=== PATIENT | male | born 1985 | race Caucasian/White ===

== ENCOUNTER 2021-07-09 07:18 | Outpatient (CLI) | payer OTHER, SELFPAY ==
[2021-07-09 09:02] LABS: Basophils Absolute Auto 0.1 K/mm3 (0.0-0.1); Basophils Percent Auto 1.1 % (0.2-1.2); Eosinophils Absolute Auto 0.5 K/mm3 (0-0.3); Eosinophils Percent Auto 7.9 % (0-4.4); Hematocrit 46.6 % (42.0-52.0); Hemoglobin 15.6 g/dL (14.0-18.0); Immature Granulocyte Absolute 0.03 K/mm3 (0.00-0.031); Immature Granulocyte Percent A 0.5 % (0-0.5); Lymphocytes Absolute Auto 1.49 K/mm3 (0.9-3.2); Mean Corpuscular HGB Conc 33.5 g/dl (32-36); Mean Corpuscular Hemoglobin 30.4 pg (26-34); Mean Corpuscular Volume 90.7 fl (80-100); Mean Platelet Volume 11.4 fl (7.4-10.4); Monocytes Absolute Auto 0.9 K/mm3 (0.1-0.6); Monocytes Percent Auto 14.5 % (2.6-8.5); Neutrophils Absolute Auto 3.2 K/mm3 (1.3-6.7); Platelet Count Result 232 k/mm3 (150-375); Red Blood Count 5.14 M/mm3 (4.6-6.20); Red Cell Distribution Width 12.9 % (11.5-14.5); White Blood Count 6.2 K/mm3 (4.5-10.0)
[2021-07-09 09:14] LABS: Alanine Aminotransferase 38 U/L (4-50); Albumin Level 4.5 g/dL (3.5-5.1); Alkaline Phosphatase 81 U/L (38-126); Anion Gap 7 mmol/L (8-16); Aspartate Amino Transferase 32 U/L (17-59); Bilirubin,Total 0.9 mg/dL (0.2-1.3); Blood Urea Nitrogen 19 mg/dL (9-20); Calcium 8.8 mg/dL (8.4-10.2); Carbon Dioxide 27 mmol/L (22-30); Chloride 107 mmol/L (98-107); Cholesterol 180 mg/dL (0-200); Estimated Glomerular Filt Rate > 60; Glucose 102 mg/dL (65-110); HDL Direct 45 mg/dL; Potassium 4.1 mmol/L (3.4-5.0); Sodium 141 mmol/L (137-145); Triglycerides 100 mg/dL (<150)
[2021-07-09 09:26] LABS: LDL Cholesterol Direct 97 mg/dL
== END 2021-07-09 07:19 | disposition home or self-care (01) ==
PROVIDERS: PCP Family Medicine; Visit Provider Nurse Practitioner Family
DX: R10.9 Unspecified abdominal pain (principal); Z13.29 Encounter for screening for other suspected endocrine disorder; R40.0 Somnolence; Z13.220 Encounter for screening for lipoid disorders
CPT/HCPCS: 36415; 80053; 80061; 84443; 85025

== ENCOUNTER 2021-07-19 10:59 | Outpatient (CLI) | payer OTHER, SELFPAY ==
--- NOTE | ~2021-07-19 | XR_ITS ---
EXAMINATION:XR_[id number]_CR DATE: 07/19/2021 11:22 INDICATION: Neck pain TECHNIQUE: AP, lateral, and odontoid views of the cervical spine are provided. COMPARISON: None FINDINGS: Alignment is normal. The odontoid is intact. No fracture is identified. Vertebral body heig hts and disk spaces are normal. Prevertebral soft tissues are normal. IMPRESSION: 1. Unremarkable cervical spine. Reviewed, dictated and finalized at location A.
== END 2021-07-19 11:00 | disposition home or self-care (01) ==
LOC: ANHIMG 11:04
PROVIDERS: PCP Family Medicine; Visit Provider Nurse Practitioner Family
DX: M54.2 Cervicalgia (principal)
CPT/HCPCS: 72040

== ENCOUNTER 2022-04-17 02:27 | Emergency (ER) | payer OTHER, SELFPAY ==
[2022-04-17] VITALS (20 sets, daily range): BP systolic 113–132; BP diastolic 70–94; PULSE 72–95; RESP 12–32; O2SAT 94–100
--- NOTE | ~2022-04-17 | XR_ITS ---
XR chest 2V DATE: 04/17/2022 03:05 INDICATION: Midsternal chest pain TECHNIQUE: PA and lateral views COMPARISON: None FINDINGS: Normal heart size. No hilar or mediastinal enlargement. No pulmonary infiltrate or consolid ation, pleural effusion or pulmonary vascular congestion or pneumothorax. IMPRESSION: No active cardiac pulmonary disease Reviewed, dictated and finalized at location A.
--- NOTE | 2022-04-17 02:32 | ECG_ITS ---
Measurements Intervals [place] Rate: 85 P: 27 CO: 148 QRS: 27 QRSD: 102 T: -7 QT: 345 QTc: 412 Interpretive Statements SINUS RHYTHM INCOMPLETE RIGHT BUNDLE BRANCH BLOCK MINIMAL Q WAVES- DIFFUSE LEADS BORDERLINE ST-T WAVE ABNORMALITY- ANT/INF LEADS BASELINE ARTIFACT- I, II, AVR BORDERLINE ECG Electronically Signed On 04-17-2022 9:41:20 CDT by Randy Woods D.O.
[2022-04-17 02:44] LABS: Basophils Absolute Auto 0.1 K/mm3 (0.0-0.1); Basophils Percent Auto 0.9 % (0.2-1.2); Eosinophils Absolute Auto 0.7 K/mm3 (0-0.3); Eosinophils Percent Auto 8.7 % (0-4.4); Hematocrit 46.4 % (42.0-52.0); Hemoglobin 15.7 g/dL (14.0-18.0); Immature Granulocyte Absolute 0.02 K/mm3 (0.00-0.031); Immature Granulocyte Percent A 0.2 % (0-0.5); Lymphocytes Absolute Auto 2.56 K/mm3 (0.9-3.2); Lymphocytes Percent Auto 31.4 % (18.3-44.2); Mean Corpuscular HGB Conc 33.8 g/dl (32-36); Mean Corpuscular Hemoglobin 30.2 pg (26-34); Mean Corpuscular Volume 89.2 fl (80-100); Monocytes Absolute Auto 1.2 K/mm3 (0.1-0.6); Monocytes Percent Auto 14.2 % (2.6-8.5); Neutrophils Absolute Auto 3.6 K/mm3 (1.3-6.7); Neutrophils Percent Auto 44.6 % (45.5-73.1); Platelet Count Result 247 k/mm3 (150-375); Red Cell Distribution Width 12.7 % (11.5-14.5); White Blood Count 8.2 K/mm3 (4.5-10.0)
[2022-04-17] MEDS: ASPIRIN 81 MG CHEWABLE TABLET 324 MG PO (02:47)
[2022-04-17 02:54] LABS: Alanine Aminotransferase 40 U/L (6-50); Albumin Level 4.7 g/dL (3.5-5.1); Alkaline Phosphatase 97 U/L (38-126); Anion Gap 8 mmol/L (8-16); Aspartate Amino Transferase 31 U/L (17-59); Bilirubin,Total 0.4 mg/dL (0.2-1.3); Blood Urea Nitrogen 14 mg/dL (9-20); Calcium 8.7 mg/dL (8.4-10.2); Carbon Dioxide 26 mmol/L (22-30); Chloride 107 mmol/L (98-107); Estimated CRCL calculation 100 ml/min; Estimated Glomerular Filt Rate > 60; Glucose 115 mg/dL (65-110); Lipase 83 U/L (23-300); Potassium 3.9 mmol/L (3.4-5.0); Prothrombin Time 12.6 Seconds (11.1-14.7); Sodium 141 mmol/L (137-145)
[2022-04-17 02:55] LABS: Partial Thromboplastin Time 30.5 SECONDS (22.3-36.8)
--- NOTE | 2022-04-17 03:02 | PC.NURSE ---
Pt in Xray at this time.
[2022-04-17 03:05] LABS: Troponin I < 0.012 ng/mL (0.000-0.034)
[2022-04-17] MEDS: BELLADONNA ALK/PHENOB ELIX 10 ML, MAG HYDROX/ALUMINUM HYD/SIMETH 30 ML, LIDOCAINE HCL 2... PO (03:26)
--- NOTE | 2022-04-17 04:26 | ED.GENADULT ---
HPI - General Adult General Chief complaint: Chest Pain Stated complaint: chest pain Time Seen by Provider: 04/17/22 02:47 History of Present Illness HPI narrative: Patient is a 36-year-old gentleman who presents the emergency department with chief complaint of chest pain. The patient reports that he has history of reflux and this evening started having discomfort in his chest patient reports the pain is not improved by anything nor is it worsened by anything. Related Data Allergies Allergy/AdvReac Type Severity Reaction Status Date / Time No Known Allergies Allergy Verified 07/19/21 09:05 Review of Systems Review of Systems: A 10 system review of systems was completed on the patient and is negative except for what is stated in the HPI. Nursing and ancillary documentation was reviewed. [facility]LY [facility] Past Medical History Medical History BMI 27.0-27.9,adult Family History Family History Father No problems noted. Mother No problems noted. Sibling No problems noted. 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 HEAD: Normocephalic, atraumatic. EYES: PERRLA and EOMI. ENT: Nares clear, no rhinorrhea or epistaxis. Mucous membranes moist. NECK: Supple. CHEST: Clear to auscultation. No respiratory distress. HEART: Regular rate and rhythm. No murmur heard. Normal peripheral pulses. ABDOMEN: Soft, nontender, nondistended, normal active bowel sounds. EXTREMITIES: Normal range of motion. No edema. SKIN: Warm, dry, no rash. NEURO: No focal deficits. Alert and oriented x3. PSYCH: Normal mood and affect. Course Course Emergency Course: EKG is sinus rhythm rate of [address] elevation or ST depression Vital Signs Vital signs: Vital Signs Pulse Rate 95 04/17/22 02:32 Respiratory Rate 13 04/17/22 02:32 Blood Pressure 125/94 H 04/17/22 02:32 Pulse Oximetry 98 04/17/22 02:32 Oxygen Delivery Room Air 04/17/22 02:32 Pulse Rate 82 04/17/22 04:56 Respiratory Rate 17 04/17/22 04:56 Blood Pressure 113/70 04/17/22 04:21 Pulse Oximetry 96 04/17/22 04:56 Oxygen Delivery Room Air 04/17/22 02:32 Medical Decision Making Vital Signs Vital Signs: Vital Signs Pulse Rate 95 04/17/22 02:32 Respiratory Rate 13 04/17/22 02:32 Blood Pressure 125/94 H 04/17/22 02:32 Pulse Oximetry 98 04/17/22 02:32 Oxygen Delivery Room Air 04/17/22 02:32 Pulse Rate 82 04/17/22 04:56 Respiratory Rate 17 04/17/22 04:56 Blood Pressure 113/70 04/17/22 04:21 Pulse Oximetry 96 04/17/22 04:56 Oxygen Delivery Room Air 04/17/22 02:32 Lab Data Result diagrams: 04/17/22 02:39 04/17/22 02:39 Labs: Lab Results 04/17/22 04/17/22 04/17/22 Range/Units 02:39 02:39 02:39 WBC 8.2 (4.5-10.0) K/mm3 RBC 5.20 (4.6-6.20) M/mm3 Hgb 15.7 (14.0-18.0) g/dL Hct 46.4 (42.0-52.0) % MCV 89.2 (80-100) fl MCH 30.2 (26-34) pg MCHC 33.8 (32-36) g/dl RDW 12.7 (11.5-14.5) % Plt Count 247 (150-375) k/mm3 MPV 11.0 H (7.4-10.4) fl Immature Gran % (Auto) 0.2 (0-0.5) % Neut % (Auto) 44.6 L (45.5-73.1) % Lymph % (Auto) 31.4 (18.3-44.2) % [place] % (Auto) 14.2 H (2.6-8.5) % Eos % (Auto) 8.7 H (0-4.4) % Baso % (Auto) 0.9 (0.2-1.2) % Lymph # (Auto) 2.56 (0.9-3.2) K/mm3 [place] # (Auto) 1.2 H (0.1-0.6) K/mm3 Eos # (Aut
[2022-04-17 06:01] LABS: Troponin I < 0.012 ng/mL (0.000-0.034)
== END 2022-04-17 06:33 | disposition home or self-care (01) ==
PROVIDERS: Emergency Provider Emergency Medicine; PCP Family Medicine
DX: R07.89 Other chest pain (principal); K21.9 Gastro-esophageal reflux disease without esophagitis
CPT/HCPCS: 36415; 71046; 80053; 83690; 84484; 85025; 85610; 85730; 93005; 99284; A9270

== ENCOUNTER 2022-07-05 07:25 | Outpatient (CLI) | payer OTHER, SELFPAY ==
--- NOTE | 2022-07-12 17:08 | WPDHOMESLEEP ---
Sleep Study - Home Unattended Date of Study: 07/05/22 Ordering Provider: Renato Cid MD Interpreting Provider: Jillian Bennett MD Home Sleep Study Type: Apnea Link Air Height: 1.85 m Weight: 92.986 kg Body Mass Index: 27.0 Neck Circumference (inches): 15.5 Norris: 5 Reason for Sleep Study Loud snoring Sleep History David Silva is a 37-year-old man with loud snoring that frequently bothers others. He was going to be tested during [facility] but that was delayed. He does not awaken from sleep feeling short of breath. He rarely awakens at night with heartburn, belching or coughing. He does not have trouble sleeping with a cold. He does not wake up gasping for breath at night. He does not have breathing problems at night observed by others. He does not sweat excessively at night or notice his heart pounding or beating irregularly at night. He occasionally falls asleep during the day, rarely falls asleep, does not fall asleep at the wheel. does not have loss of muscle tone with strong emotion. He rarely has daytime difficulties due to excessive sleepiness. He does not feel paralyzed on waking or falling asleep. He does not have vivid dreamlike scenes on waking or falling asleep. He does not feel afraid to go to sleep. He does not have nightmares. He rarely remembers his dreams. He does not have racing thoughts. He rarely feels sad or depressed. He occasionally feels anxious. He frequently has muscular tension. He does not notice parts of his body jerking and he does not kick at night. He rarely has crawling or aching feelings in his legs. He does not have any kind of leg pain at night. He does not have morning jaw pain. He does not grind his teeth at night. He rarely is bothered by pain during the day and never awakened by pain at night. He occasionally wakes up feeling stiff in the morning however does not have sore or achy muscles. He rarely wakes up with pains in the neck or spine. Normal bedtime is midnight, falling asleep immediately less than 5 minutes generally not waking at night. He but when he does awaken he goes to the bathroom, checks his phone and then goes back to sleep sometimes may stay awake for 5 minutes and at other times he may stay awake for 1-2 hours. Sometimes he does not even fall back asleep. These awakenings may occur in the vp organizational development hours. He takes naps in the afternoon or evening. A short nap of 15 minutes may be refreshing. He is drowsy on waking for an hour or longer. He feels better in the afternoon compared to other times of day. Habits: Never smoked tobacco. Caffeine 1-2 servings a day. Alcohol 1 serving a day. No recreational drugs. FORMERLY [facility] Past Medical History Medical History BMI 27.0-27.9,adult Family History Family History Father Malignant neoplasm of prostate Mother H/O lymph node cancer Sibling No problems noted. 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 This study was scored using [facility] guidelines. Sleep Archite
[2022-07-12 17:14] VITALS: BMI 27.0
== END 2022-07-06 09:16 | disposition home or self-care (01) ==
PROVIDERS: PCP Family Medicine; Visit Provider Family Medicine
DX: G47.10 Hypersomnia, unspecified (principal); R40.0 Somnolence
CPT/HCPCS: 95806

== ENCOUNTER 2022-09-10 10:31 | Outpatient (CLI) | payer OTHER, SELFPAY ==
--- NOTE | ~2022-09-10 | US_ITS ---
EXAMINATION: US soft tissue abdomen DATE: 09/10/2022 10:54 INDICATION: R19.06 - Epigastric swelling, mass or lump . TECHNIQUE: Grayscale and Doppler ultrasound images of the upper abdomen were obtained. COMPARISON: None. FINDINGS: The area of concern in the mid abdomen, superior to the umbilicus was sonographically inter rogated, revealing a 1.6 x 0.9 x 1.8 cm ovoid lesion slightly hypoechoic to but generally similar ech otexture to surrounding subcutaneous fat. IMPRESSION: 1.6 cm subcutaneous mass, likely representing a lipoma. If accompanied by pain or rapid change in siz e additional imaging and/or possible excision would be advised. Reviewed, dictated and finalized at location K. 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 If accompanied by pain or rapid change in size additional imaging and/or possible excision would be ad vised.
== END 2022-09-10 10:32 ==
PROVIDERS: PCP Nurse Practitioner Family; Visit Provider Nurse Practitioner Family
DX: R19.06 Epigastric swelling, mass or lump (principal)
CPT/HCPCS: 76705

== ENCOUNTER 2022-11-28 08:28 | Emergency (ER) | payer OTHER, SELFPAY ==
--- NOTE | ~2022-11-28 | XR_ITS ---
XR abdomen/kub 1V 11/28/2022 09:48 Indication: Pelvic pain for one week Procedure: KUB Comparison: No prior studies for comparison. Findings: Lung bases are unremarkable. Bowel gas pattern is nonobstructive. There are pelvic phleboli ths. No acute osseous abnormality. Impression: 1: No acute abdominal abnormality. Reviewed, dictated and finalized at location B. 

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
[2022-11-28 08:56] VITALS: BP 121/86; PULSE 125; RESP 16; TEMP 36.8; O2SAT 99
== END 2022-11-28 10:10 | disposition home or self-care (01) ==
PROVIDERS: Emergency Provider Nurse Practitioner; PCP Family Medicine
DX: N41.0 Acute prostatitis (principal); M54.50 Low back pain, unspecified; V89.2XXD Person injured in unspecified motor-vehicle accident, traffic, subsequent encounter
CPT/HCPCS: 74018; 81003; 99213; G0463

== ENCOUNTER 2022-11-30 15:58 | Outpatient (CLI) | payer OTHER, SELFPAY ==
--- NOTE | ~2022-11-30 | XR_ITS ---
EXAMINATION: XR_[id number]_CR INDICATION: Unspecified chest pain TECHNIQUE: A frontal view of the chest and 3 views of the bilateral ribs were obtained. COMPARISON: 04/17/2022 FINDINGS: The lungs are free of acute opacities. No pleural effusion or pneumothorax. The cardiomedia stinal silhouette is normal. No displaced rib fracture is identified. IMPRESSION: 1. No acute cardiopulmonary abnormality or evidence of displaced rib fracture. Reviewed, dictated and finalized at location F. ROOM CASHIER
== END 2022-11-30 15:59 | disposition home or self-care (01) ==
PROVIDERS: PCP Family Medicine; Visit Provider Nurse Practitioner Family
DX: R07.9 Chest pain, unspecified (principal)
CPT/HCPCS: 71111

== ENCOUNTER 2023-04-17 18:51 | Emergency (ER) | payer OTHER, SELFPAY ==
--- NOTE | ~2023-04-17 | XR_ITS ---
EXAMINATION: XR chest 2V Exam Date/Time: 04/17/2023 19:18 CDT HISTORY: CP, BILATERAL ARM TINGLING, FEVER, COUGH, SOB, NO CARDIAC HX Comparison: 04/17/2022. RESULT: Lines, tubes, and devices: None. Lungs and pleura: Clear. Cardiomediastinal silhouette: Stable. Other: No acute osseous or upper abdominal finding. IMPRESSION: No acute cardiopulmonary process. Reviewed, dictated and finalized at location K.
[2023-04-17 18:54] VITALS: BP 141/88; PULSE 73; RESP 18; TEMP 37.1; O2SAT 100
--- NOTE | 2023-04-17 18:54 | ECG_ITS ---
Measurements Intervals [place] Rate: 77 P: 43 IA: 146 QRS: 31 QRSD: 104 T: -2 QT: 344 QTc: 391 Interpretive Statements SINUS RHYTHM POSSIBLE LEFT ATRIAL ENLARGEMENT INCOMPLETE RIGHT BUNDLE BRANCH BLOCK BORDERLINE ST-T WAVE ABNORMALITY- INFERIOR LEADS BORDERLINE ECG COMPARED TO ECG 04/17/2022 02:39:51 NO SIGNIFICANT CHANGES Electronically Signed On 04-17-2023 20:14:18 CDT by Randy Woods D.O.
[2023-04-17 19:29] LABS: Basophils Absolute Auto 0.1 K/mm3 (0.0-0.1); Basophils Percent Auto 0.8 % (0.2-1.2); Eosinophils Absolute Auto 0.2 K/mm3 (0-0.3); Eosinophils Percent Auto 3.7 % (0-4.4); Hematocrit 46.6 % (42.0-52.0); Hemoglobin 15.9 g/dL (14.0-18.0); Immature Granulocyte Absolute 0.02 K/mm3 (0.00-0.031); Immature Granulocyte Percent A 0.3 % (0-0.5); Lymphocytes Absolute Auto 1.47 K/mm3 (0.9-3.2); Lymphocytes Percent Auto 22.8 % (18.3-44.2); Mean Corpuscular HGB Conc 34.1 g/dl (32-36); Mean Corpuscular Hemoglobin 30.5 pg (26-34); Mean Corpuscular Volume 89.3 fl (80-100); Mean Platelet Volume 10.9 fl (7.4-10.4); Monocytes Absolute Auto 0.7 K/mm3 (0.1-0.6); Monocytes Percent Auto 10.6 % (2.6-8.5); Neutrophils Percent Auto 61.8 % (45.5-73.1); Platelet Count Result 238 k/mm3 (150-375); Red Blood Count 5.22 M/mm3 (4.6-6.20); Red Cell Distribution Width 12.7 % (11.5-14.5); White Blood Count 6.4 K/mm3 (4.5-10.0)
[2023-04-17 19:39] LABS: Alanine Aminotransferase 32 U/L (6-50); Albumin Level 4.6 g/dL (3.5-5.1); Alkaline Phosphatase 71 U/L (38-126); Anion Gap 5 mmol/L (8-16); Aspartate Amino Transferase 33 U/L (17-59); Bilirubin,Total 0.5 mg/dL (0.2-1.3); Blood Urea Nitrogen 14 mg/dL (9-20); Calcium 9.2 mg/dL (8.4-10.2); Carbon Dioxide 31 mmol/L (22-30); Chloride 102 mmol/L (98-107); Estimated CRCL calculation 109 ml/min; Estimated Glomerular Filt Rate > 60; Glucose 95 mg/dL (65-110); Lipase 58 U/L (23-300); Potassium 3.9 mmol/L (3.4-5.0); Sodium 138 mmol/L (137-145)
[2023-04-17 19:40] LABS: INR 0.9; Prothrombin Time 12.8 Seconds (11.1-14.7)
[2023-04-17 19:42] LABS: Partial Thromboplastin Time 30.3 SECONDS (22.3-36.8)
[2023-04-17 19:51] LABS: Troponin I < 0.012 ng/mL (0.000-0.034)
[2023-04-17 22:06] VITALS: O2SAT 100
[2023-04-17 22:09] VITALS: BP 139/88; PULSE 63; RESP 13; O2SAT 100
[2023-04-17 22:28] LABS: Troponin I < 0.012 ng/mL (0.000-0.034)
[2023-04-17 23:14] VITALS: BP 139/88; PULSE 68; RESP 12; O2SAT 100
[2023-04-17] MEDS: KETOROLAC 15 MG/ML VIAL (*BKC) IV PUSH (23:34)
[2023-04-17] MEDS: BELLADONNA ALK/PHENOB ELIX 10 ML, MAG HYDROX/ALUMINUM HYD/SIMETH 30 ML, LIDOCAINE HCL 2... PO (23:36)
--- NOTE | 2023-04-18 00:02 | ED.GENADULT ---
HPI - General Adult General Chief complaint: Chest Pain Stated complaint: chest pain Time Seen by Provider: 04/17/23 22:56 Source: patient Mode of arrival: ambulatory Limitations: no limitations History of Present Illness HPI narrative: This is a 37-year-old male who presents to the ED with chief complaint of chest pain ongoing for the past 10 days. He states it is intermittent. Reports it is located in the central chest and will spread bilaterally on occasion. Specifically reports that symptoms are not exacerbated with exertion. Denies any shortness of breath. Describes it as a pressure. Reports associated intermittent lightheadedness without LOC. Also reports associated bilateral hand tingling and bilateral leg cramping he states that he has history of GERD and recently started up his omeprazole again. Denies vomiting, abdominal pain, headache, cough, fevers, chills, leg swelling. Related Data Allergies Allergy/AdvReac Type Severity Reaction Status Date / Time No Known Allergies Allergy Verified 11/30/22 13:38 [facility] Past Medical History Medical History BMI 26.0-26.9,adult BMI 27.0-27.9,adult Family History Family History Father Malignant neoplasm of prostate Mother H/O lymph node cancer Sibling No problems noted. Grandparent Hypertensive hypertrophic cardiomyopathy, without heart failure Other Diabetes mellitus Family history of malignant neoplasm of kidney Social History Social History Smoking status: Never smoker Second hand tobacco smoke exposure: Yes Alcohol intake: current Substance use: never Substance use type: does not use Lack of Transportation: No Lack of Food: Never True Current Housing: I Have Housing Concerned About Future Housing: No Difficulty Paying Gas/Electric Bills: No Difficulty Paying for Meds: No Currently Unemployed: No Education: Associate Degree Difficulty w/ Childcare or Family Care: No Living arrangements: with family 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 HEAD: Normocephalic, atraumatic. EYES: PERRLA and EOMI. ENT: Nares clear, no rhinorrhea or epistaxis. Mucous membranes moist. Oropharynx without tonsillar hypertrophy exudate or other lesions. NECK: Supple. No adenopathy or masses. CHEST: No respiratory distress. Clear to auscultation. No wheezes rales or rhonchi HEART: Regular rate and rhythm. No murmur heard. Normal peripheral pulses. ABDOMEN: Soft, nontender, nondistended, normal active bowel sounds. MSK: Normal range of motion. No edema. SKIN: Warm, dry, no rash. NEURO: Alert and oriented x3. No focal deficits. PSYCH: Normal mood and affect. Course Vital Signs Vital signs: Vital Signs Temperature 98.7 F 04/17/23 18:54 Pulse Rate 73 04/17/23 18:54 Respiratory Rate 18 04/17/23 18:54 Blood Pressure 141/88 H 04/17/23 18:54 Pulse Oximetry 100 04/17/23 18:54 Oxygen Delivery Room Air 04/17/23 18:54 Temperature 98.7 F 04/17/23 18:54 Pulse Rate 68 04/17/23 23:14 Respiratory Rate 12 04/17/23 23:14 Blood Pressure 139/88 04/17/23 23:14 Pulse Oximetry 100 04/17/23 23:14 Oxygen Delivery Room Air 04/17/23 22:09 Medical Decision Making MDM Narrative Medical decision making narrative: This is a 37-year-old male presents to the ED with chief complaint of chest pain ongoing for the past 10 days intermittently. Vitals are normal. Exam is benign. PERC rule negative. EKG shows sinus rhythm. No significant changes compared to prior ECG in April 2022. Serial troponins are negative. Lab work is largely unremarkable.
== END 2023-04-18 00:18 | disposition home or self-care (01) ==
PROVIDERS: Emergency Medicine; Emergency Provider Physician Assistant; PCP Family Medicine
DX: R07.9 Chest pain, unspecified (principal); K21.9 Gastro-esophageal reflux disease without esophagitis
CPT/HCPCS: 36415; 71046; 80053; 83690; 84484; 85025; 85610; 85730; 93005; 96374; 99284; A9270; J1885

== ENCOUNTER 2023-06-13 13:34 | Outpatient (CLI) | payer OTHER, SELFPAY ==
--- NOTE | 2023-06-13 13:46 | ECHO_ITS ---
Patient Info Name: David Silva Age: 38 years : 1985 Gender: Male Ht: 73 in Wt: 200 lbs BSA: 2.17 m2 HR: 75 bpm BP: 131 / 88 mmHg Heart Rhythm: Sinus Rhythm Technical Quality: Fair Exam Date: 06/13/2023 1:56 PM Exam Location: [facility] Patient Status: Outpatient Admit Date: 06/13/2023 Staff Ordering Physician: Zen Mitchell NP High Density Press Laborer: Shabnam Velasquez RDCS Attending Provider: Zen Mitchell NP Referring Physician: Stephen RAY; Exam Type: CA echo doppler color flow Study Info Indications R94.31 - Abnormal electrocardiogram ECG EKG R07.9 - Chest pain, unspecified Complete two-dimensional, color flow and Doppler transthoracic echocardiogram is performed. Summary 1. Complete two-dimensional, color flow and Doppler transthoracic echocardiogram is performed. 2. Left ventricular chamber dimension is normal. 3. Left ventricular systolic function is normal, estimated at 60-65%. 4. There is moderate concentric increased left ventricular wall thickness. 5. The left ventricular diastolic function is normal. 6. E/e' 7 is not elevated. 7. There is trace tricuspid valve regurgitation. 8. No pulmonary hypertension, estimated pulmonary arterial systolic pressure is 27 mmHg. Left Ventricle E/e' 7 is not elevated. Left ventricular chamber dimension is normal. Left ventricular systolic function is normal, estimated at 60-65%. There is moderate concentric increased left ventricular wall thickness. The left ventricular diastolic function is normal. Right Ventricle Right ventricular systolic function is normal and with normal TAPSE 2.4 cm. Right ventricular chamber dimension is normal. Left Atria Left atrial chamber dimension is normal. Right Atria Right atrial chamber dimension is normal. Aortic Valve The aortic valve is trileaflet. There is no aortic valve stenosis. There is no aortic valve regurgitation. Pulmonic Valve There is no pulmonic regurgitation. Mitral Valve There is no mitral valve stenosis. There is no mitral valve regurgitation. Tricuspid Valve There is trace tricuspid valve regurgitation. No pulmonary hypertension, estimated pulmonary arterial systolic pressure is 27 mmHg. Pericardium/Pleural There is no pericardial effusion. Inferior Vena Cava Normal inferior vena cava with >50% collapse upon inspiration consistent with normal right atrial pressure, 5 mmHg. Aorta The aortic root size at the sinus of Valsalva is normal. Left Ventricular Outflow Tract Name Value Normal LVOT 2D LVOT Diameter 2.1 cm LVOT Doppler LVOT Peak Gradient 4 mmHg LVOT Mean Gradient 2 mmHg LVOT VTI 20 cm LVOT VTI/AV VTI Ratio 0.9 LVOT Stroke Volume 70 ml LVOT CO 4.2 l/min LVOT CI 1.9 l/min/m2 Pulmonic Valve Name Value Normal RVOT Doppler
== END 2023-06-13 13:35 | disposition home or self-care (01) ==
LOC: ANHCARD 13:35
PROVIDERS: PCP Family Medicine; Visit Provider Nurse Practitioner Family
DX: R07.9 Chest pain, unspecified (principal); R94.31 Abnormal electrocardiogram [ECG] [EKG]
CPT/HCPCS: 93306

== ENCOUNTER → 2023-11-25 07:15 | Outpatient (CLI) | payer OTHER, SELFPAY ==
--- NOTE | ~2023-11-25 | US_ITS ---
US abdomen complete EXAMINATION: US Abdomen Complete INDICATION: Right upper quadrant pain PROCEDURE: Realtime High Resolution abdomen ultrasound. COMPARISON: No prior studies for comparison FINDINGS: Gallbladder within normal limits. No gallstones, pericholecystic fluid, gallbladder wall t hickening or biliary dilatation. Common bile duct measures 3 mm. Liver echotexture is increased, consistent with fatty infiltration.. Pancreas is not well visualized due to bowel gas.. Spleen is unremarkeable, although obscured by bowel gas. Renal echotexture is wi thin normal limits bilaterally without hydronephrosis, contour deforming mass or renal stone. Right k idney measures 11.6 cm. Left kidney measures 11.7 cm. There is left renal cyst measuring 2.3 cm. Visualized aspects of the aorta and IVC are within normal limits. Portal vein is patent. No sonograph ic Pimentel's sign indicated by the technologist. IMPRESSION: 1: Fatty infiltration of the liver. 2: Left renal cyst measuring 2.3 cm. Reviewed, dictated and finalized at location A. 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
== END ==
PROVIDERS: PCP Nurse Practitioner Family; Visit Provider Nurse Practitioner Family
DX: K59.00 Constipation, unspecified (principal); N28.1 Cyst of kidney, acquired; K76.0 Fatty (change of) liver, not elsewhere classified
CPT/HCPCS: 76700

== ENCOUNTER 2023-12-21 16:05 | Outpatient (CLI) | payer OTHER, SELFPAY ==
[2023-12-21 16:40] LABS: Hematocrit 45.6 % (42.0-52.0); Hemoglobin 15.3 g/dL (14.0-18.0); Mean Corpuscular HGB Conc 33.6 g/dl (32-36); Mean Corpuscular Hemoglobin 30.3 pg (26-34); Mean Corpuscular Volume 90.3 fl (80-100); Mean Platelet Volume 11.4 fl (7.4-10.4); Platelet Count Result 220 k/mm3 (150-375); Red Blood Count 5.05 M/mm3 (4.6-6.20); Red Cell Distribution Width 13.2 % (11.5-14.5); White Blood Count 6.8 K/mm3 (4.5-10.0)
[2023-12-21 16:55] LABS: INR 0.9; Prothrombin Time 12.3 Seconds (11.1-14.7)
[2023-12-21 16:56] LABS: Alanine Aminotransferase 31 U/L (6-50); Albumin Level 4.4 g/dL (3.5-5.1); Alkaline Phosphatase 71 U/L (38-126); Anion Gap 3 mmol/L (8-16); Aspartate Amino Transferase 30 U/L (17-59); Bilirubin,Total 0.8 mg/dL (0.2-1.3); Blood Urea Nitrogen 12 mg/dL (9-20); Calcium 9.4 mg/dL (8.4-10.2); Carbon Dioxide 32 mmol/L (22-30); Chloride 104 mmol/L (98-107); Estimated Glomerular Filt Rate > 60; Glucose 93 mg/dL (65-110); Potassium 3.8 mmol/L (3.4-5.0); Sodium 139 mmol/L (137-145)
== END 2023-12-21 16:06 | disposition home or self-care (01) ==
LOC: ANHLAB 16:06
PROVIDERS: PCP Nurse Practitioner Family; Visit Provider Nurse Practitioner Family
DX: K76.0 Fatty (change of) liver, not elsewhere classified (principal)
CPT/HCPCS: 36415; 80053; 85027; 85610

== ENCOUNTER 2024-01-24 06:10 | Day surgery (SDC) | payer OTHER, SELFPAY ==
[2023-12-25 07:58] VITALS: BMI 27.2
[2024-01-11 14:06] VITALS: BMI 25.6
--- NOTE | 2024-01-23 09:30 | P.PNAN_ITS ---
Anes - Initial Pre Proc Eval Procedure: Operation Date: 01/24/24 08:00 Proposed Procedures p Esophagogastroduodenoscopy - Akash Abdul MD Date/Time: 01/23/24 09:30 Surgeon: Akash Abdul MD Pre Op Diagnosis: Gerd w/o Esophagitis, RUQ Pain, Precordial Pain Patient Data Age: 38 Gender: M Height: 1.85 m Weight: 88 kg Allergies Allergy/AdvReac Type Severity Reaction Status Date / Time No Known Allergies Allergy Verified 01/24/24 06:34 Home Medications Medication Instructions Recorded Confirmed Type fluticasone propionate 50 1 - 2 spray intranasal BID #16 mL 11/13/23 01/24/24 Rx mcg/actuation nasal spray,suspension (Flonase Allergy Relief) mupirocin 2 % topical ointment 1 applic topical BID #22 grams 11/13/23 01/24/24 Rx hydroxyzine HCl 25 mg tablet 25 mg PO QID PRN itching #30 tabs 12/12/23 01/24/24 Rx Patient hx anesthesia problems: none Family hx anesthesia problems: none Results Review: All pre-operative results and documents have been reviewed as part of the pre- operative evaluation. [facility] Past Medical History Medical History (Updated 01/23/24 @ 09:30 by Roberto Goldberg DO) BMI 26.0-26.9,adult BMI 27.0-27.9,adult Cardiomyopathy Fatty liver Family History Family History Father Malignant neoplasm of prostate Mother H/O lymph node cancer Sibling No problems noted. 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 Smoking status: Never smoker Second hand tobacco smoke exposure: Yes Alcohol intake: former Alcohol use details: WEEKENDS Substance use: never Substance use type: does not use Lack of Transportation: No Lack of Food: Never True Current Housing: I Have Housing Concerned About Future Housing: No Difficulty Paying Gas/Electric Bills: No Difficulty Paying for Meds: No Currently Unemployed: No Education: Associate Degree Difficulty w/ Childcare or Family Care: No Living arrangements: with family 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 Informed Consent: The patient's anesthetic plan and its attendant risks and benefits were discussed with the patient/family/POA. Questions were solicited and answers provided to the satisfaction of the patient/family/POA.
[2024-01-24 06:42] VITALS: BP 118/83; PULSE 78; RESP 18; TEMP 36.6; O2SAT 98; BMI 25.8
[2024-01-24] MEDS: LACTATED RINGERS 1,000 ML 150 ML IV CONT (07:06)
--- NOTE | 2024-01-24 07:17 | PM.HPGS ---
History of Present Illness History of Present Illness Consent: Risks, benefits, and alternatives have been discussed and questions answered. Patient agrees to proceed with procedure. Chief complaint: Gerd w/o Esophagitis, RUQ Pain, Precordial Pain Narrative: David Silva is a 38 year old male presents for EGD. Patient has a history hypertrophic heart disease. He has a history of intermittent heartburn for which she takes Tums. Has gone to the ER on several occasions. More recently has complaints of right upper quadrant pain. Workup this is found to fatty liver. EGD requested because of his heartburn as well as intermittent right upper quadrant pain to exclude organic disease. The patient denies any weight loss, He denies any bleeding. Review of Systems Review of Systems: All systems reviewed & are unremarkable except as noted in HPI and below PMFSH Past Medical History Medical History (Updated 01/23/24 @ 09:30 by Roberto Goldberg, DO) BMI 26.0-26.9,adult BMI 27.0-27.9,adult Cardiomyopathy Fatty liver Family History Family History Father Malignant neoplasm of prostate Mother H/O lymph node cancer Sibling No problems noted. 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 Smoking status: Never smoker Second hand tobacco smoke exposure: Yes Alcohol intake: former Alcohol use details: WEEKENDS Substance use: never Substance use type: does not use Lack of Transportation: No Lack of Food: Never True Current Housing: I Have Housing Concerned About Future Housing: No Difficulty Paying Gas/Electric Bills: No Difficulty Paying for Meds: No Currently Unemployed: No Education: Associate Degree Difficulty w/ Childcare or Family Care: No Living arrangements: with family 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 Gender identity (if verbalized by the patient): Male Spiritual care concerns: No Meds Home Medications and Allergies Home Medications Medication Instructions Recorded Confirmed Type fluticasone propionate 50 1 - 2 spray intranasal BID #16 mL 11/13/23 01/24/24 Rx mcg/actuation nasal spray,suspension (Flonase Allergy Relief) mupirocin 2 % topical ointment 1 applic topical BID #22 grams 11/13/23 01/24/24 Rx hydroxyzine HCl 25 mg tablet 25 mg PO QID PRN itching #30 tabs 12/12/23 01/24/24 Rx Allergies Allergy/AdvReac Type Severity Reaction Status Date / Time No Known Allergies Allergy Verified 01/24/24 06:34 Vital Signs Vital Signs - 24 hr 01/24/24 06:42 Temperature 97.8 F Pulse Rate 78 Respiratory Rate 18 Blood Pressure 118/83 Pulse Oximetry 98 Oxygen Delivery Room Air Exam Narrative: Physical exam reveals patient to be alert. Vital signs stable. HEENT exam is unremarkable. Patient is anicteric. Lungs are clear to auscultation and percussion. Heart is without murmur or extra sounds. Abdomen bowel sounds are present soft nontender with no organomegaly. Digital external rectal exam is normal. Assessment and Plan Assessment and plan (1) Right upper quadrant abdominal pain: Code(s): R10.11 - Right upper quadrant pain Status: Acute Assessment and Plan: Some right upper quadrant pain of uncertain etiology. Workup has shown a fatty liver not expected to cause this pain. EGD is requested to exclude organic disease. (2) GERD (gastroesophageal reflux disease): Qualifiers: Esophagitis presence: without esophagitis Qualified Code(s): K21.9 - Gastro-esophageal reflux disease without esophagitis Code(s): K21.9 - Gastro-esophageal reflux disease without es
[2024-01-24 08:12] VITALS: BP 99/73; PULSE 66; RESP 16; O2SAT 97
[2024-01-24 08:22] VITALS: BP 101/65; PULSE 64; RESP 16; O2SAT 97
[2024-01-24 08:32] VITALS: BP 110/80; PULSE 64; RESP 18; O2SAT 97
--- NOTE | 2024-01-24 08:52 | SUR.PHASEII ---
0850; PT DRESSED AND WAITING FOR RIDE
--- NOTE | 2024-01-24 13:32 | WPDANESPN ---
Anes - Prog Note Post-Op Date/Time: 01/24/24 13:32 Cardiovascular status: normal Respiratory status: normal Airway patency: baseline Mental status: baseline Post-Op hydration status: normal Vital Signs: Last Vital Signs Temp 36.6 C 01/24/24 06:42 Pulse 64 01/24/24 08:32 Resp 18 01/24/24 08:32 BP 110/80 01/24/24 08:32 Pulse Ox 97 01/24/24 08:32 O2 Del Method Room Air 01/24/24 08:32 Pain Score (VAS): 0 I/O: Intake & Output 01/23/24 01/24/24 01/24/24 23:59 07:59 15:59 Intake Total 500 Balance 500 Post-procedural complaints: none Patient Feedback: Patient satisfied with anesthetic care. Other Findings: Patient vital signs back to baseline. Patient denies nausea and vomiting. Patient's pain under control. Patient OK for discharge.
== END 2024-01-24 09:05 | disposition home or self-care (01) ==
PROVIDERS: PCP Family Medicine; Visit Provider Internal Medicine Gastroenterology
PROC: 0DJ08ZZ Inspection of Upper Intestinal Tract, Via Natural or Artificial Opening Endoscopic (ICD-10-PCS; CPT 43235; principal; 2024-01-24 08:00)
DX: K21.9 Gastro-esophageal reflux disease without esophagitis (principal); R10.11 Right upper quadrant pain; K22.70 Barrett's esophagus without dysplasia; K44.9 Diaphragmatic hernia without obstruction or gangrene
CPT/HCPCS: 43239

== ENCOUNTER 2024-01-24 07:54 | Outpatient (NON) | payer OTHER, SELFPAY | END 2024-01-24 07:55 | disposition home or self-care (01) | PROVIDERS: PCP Family Medicine; Visit Provider Internal Medicine Gastroenterology | DX: K21.9 Gastro-esophageal reflux disease without esophagitis (principal) | CPT/HCPCS: 88305 ==

== ENCOUNTER 2024-04-17 15:50 | Outpatient (CLI) | payer OTHER, SELFPAY ==
--- NOTE | 2024-04-17 15:56 | ECHO_ITS ---
Patient Info Name: David Silva Age: 38 years : 1985 Gender: Male Ht: 72 in Wt: 195 lbs BSA: 2.13 m2 HR: 76 bpm BP: 136 / 88 mmHg Heart Rhythm: Sinus Rhythm Technical Quality: Good Exam Date: 04/17/2024 4:17 PM Exam Location: Echo Lab Patient Status: Outpatient Admit Date: 04/17/2024 Staff Ordering Physician: Randy Woods DO Sill Worker: Court Crystal RDCS Attending Provider: Randy Woods DO Referring Physician: Chuck DE; Exam Type: CA echo doppler color flow Study Info Indications - FAMILY HISTORY OF HEART DISEASE AND OTHERS Complete two-dimensional, color flow and Doppler transthoracic echocardiogram is performed. Summary 1. Complete two-dimensional, color flow and Doppler transthoracic echocardiogram is performed. 2. Left ventricular chamber dimension is normal. 3. Left ventricular systolic function is normal, estimated at 60-65%. 4. The left ventricular diastolic function is normal. 5. E/e' 6 is not elevated. 6. Left atrial chamber dimension is mildly enlarged. 7. There is trace mitral valve regurgitation. 8. There is trace tricuspid valve regurgitation. 9. No pulmonary hypertension, estimated pulmonary arterial systolic pressure is 22 mmHg. Left Ventricle E/e' 6 is not elevated. Left ventricular chamber dimension is normal. Left ventricular systolic function is normal, estimated at 60-65%. The left ventricular diastolic function is normal. Right Ventricle Right ventricular systolic function is normal and with normal TAPSE 2.5 cm. Right ventricular chamber dimension is normal. Left Atria Left atrial chamber dimension is mildly enlarged. Right Atria Right atrial chamber dimension is normal. Aortic Valve The aortic valve is trileaflet. There is no aortic valve stenosis. There is no aortic valve regurgitation. Pulmonic Valve There is no pulmonic regurgitation. Mitral Valve There is no mitral valve stenosis. There is trace mitral valve regurgitation. Tricuspid Valve There is trace tricuspid valve regurgitation. No pulmonary hypertension, estimated pulmonary arterial systolic pressure is 22 mmHg. Pericardium/Pleural There is no pericardial effusion. Inferior Vena Cava Normal inferior vena cava with >50% collapse upon inspiration consistent with normal right atrial pressure, 5 mmHg. Aorta The aortic root size at the sinus of Valsalva is normal. Left Ventricular Outflow Tract Name Value Normal LVOT 2D LVOT Diameter 2.1 cm LVOT Doppler LVOT Peak Gradient 5 mmHg LVOT Mean Gradient 3 mmHg LVOT VTI 22 cm LVOT VTI/AV VTI Ratio 1.0 LVOT Stroke Volume 75 ml LVOT CO 5.1 l/min LVOT CI 2.4 l/min/m2 Pulmonic Valve Name Value Normal PV Doppler PV Peak Gradient 4 mmHg Mitral
== END 2024-04-17 15:51 | disposition home or self-care (01) ==
LOC: ANHCARD 15:53
PROVIDERS: PCP Family Medicine; Visit Provider Internal Medicine Cardiovascular Disease
DX: Z82.49 Family history of ischemic heart disease and other diseases of the circulatory system (principal)
CPT/HCPCS: 93306

== ENCOUNTER 2024-06-24 15:33 | Outpatient (CLI) | payer OTHER, SELFPAY ==
[2024-06-24 15:58] LABS: Hematocrit 45.3 % (42.0-52.0); Hemoglobin 14.9 g/dL (14.0-18.0); Mean Corpuscular HGB Conc 32.9 g/dl (32-36); Mean Corpuscular Hemoglobin 29.8 pg (26-34); Mean Corpuscular Volume 90.6 fl (80-100); Mean Platelet Volume 10.9 fl (7.4-10.4); Platelet Count Result 201 k/mm3 (150-375); Red Cell Distribution Width 13.1 % (11.5-14.5); White Blood Count 6.2 K/mm3 (4.5-10.0)
[2024-06-24 16:08] LABS: Alanine Aminotransferase 20 U/L (6-50); Albumin Level 4.5 g/dL (3.5-5.1); Alkaline Phosphatase 66 U/L (38-126); Amylase 65 U/L (30-110); Anion Gap 8 mmol/L (4-12); Aspartate Amino Transferase 25 U/L (17-59); Bilirubin,Total 0.5 mg/dL (0.2-1.3); Blood Urea Nitrogen 14 mg/dL (9-20); Calcium 9.2 mg/dL (8.4-10.2); Carbon Dioxide 30 mmol/L (22-30); Chloride 98 mmol/L (98-107); Estimated Glomerular Filt Rate > 60; Glucose 99 mg/dL (65-110); Lipase 85 U/L (23-300); Potassium 3.8 mmol/L (3.4-5.0); Sodium 136 mmol/L (137-145)
== END 2024-06-24 15:34 | disposition home or self-care (01) ==
LOC: ANHLAB 15:34
PROVIDERS: PCP Family Medicine; Visit Provider Nurse Practitioner Family
DX: K76.0 Fatty (change of) liver, not elsewhere classified (principal); R10.11 Right upper quadrant pain
CPT/HCPCS: 36415; 80053; 82150; 83690; 85027

== ENCOUNTER 2024-07-13 07:33 | Outpatient (CLI) | payer OTHER, SELFPAY ==
--- NOTE | ~2024-07-13 | NM_ITS ---
EXAMINATION: NM hepatobiliary wo pharm DATE: 07/13/2024 09:55 INDICATION: Right upper quadrant abdominal pain. COMPARISON: Ultrasound 11/25/2023 TECHNIQUE: 4.8 mCi Tc-99m mebrofenin (Choletec) was administered intravenously. Scintigraphic images of the abdomen were obtained for one hour. Then, the patient drank 8 oz Ensure, and imaging was cont inued for 60 minutes. FINDINGS: There is normal clearance of radiotracer from the blood pool. There is homogeneous tracer u ptake by the liver. Activity progresses to the bowel and gallbladder. Gallbladder ejection fraction (GBEF) was 73%. Note that with this technique, normal GBEF >= 33%. IMPRESSION: 1. Normal hepatobiliary scintigraphy. Reviewed, dictated and finalized at location A.
== END 2024-07-13 07:34 | disposition home or self-care (01) ==
PROVIDERS: PCP Family Medicine; Visit Provider Nurse Practitioner Family
DX: R10.11 Right upper quadrant pain (principal)
CPT/HCPCS: 78226; A9537

== ENCOUNTER 2024-09-07 10:26 | Outpatient (CLI) | payer OTHER, SELFPAY ==
--- NOTE | ~2024-09-07 | MR_ITS ---
EXAMINATION: MR lumbar spine wo con DATE: 09/07/2024 11:35 INDICATION: Low back pain. Right-sided radiculopathy. TECHNIQUE: Magnetic resonance imaging (MRI) of the lumbar spine was performed without intravenous con trast. Sequences included sagittal T2-weighted FSE, sagittal T2-weighted FS FSE, sagittal T1-weighted FSE, and axial T2-weighted FSE. COMPARISON: None FINDINGS: Alignment is normal. Vertebral body heights are normal. Intervertebral disc heights are nor mal. The distal spinal cord signal intensity is normal. The conus medullaris is at T12. There is a 2. 5 cm cyst in left kidney. The following disc levels are specifically discussed: L1-L2: The disc does not extend beyond the endplate margin. There is mild bilateral facet joint osteo arthritis. There is no neural foraminal stenosis. There is no central canal stenosis. L2-L3: The disc does not extend beyond the endplate margin. There is moderate bilateral facet joint o steoarthritis. There is no neural foraminal stenosis. There is no central canal stenosis. L3-L4: The disc does not extend beyond the endplate margin. There is severe bilateral facet joint ost eoarthritis. There is no neural foraminal stenosis. There is no central canal stenosis. L4-L5: The disc is bulging. There is severe bilateral facet joint osteoarthritis. There is mild bilat eral neural foraminal stenosis. There is no central canal stenosis. L5-S1: The disc does not extend beyond the endplate margin. There is severe bilateral facet joint ost eoarthritis. There is no neural foraminal stenosis. There is no central canal stenosis. IMPRESSION: 1. Mild lumbar spondylosis. Reviewed, dictated and finalized at location A. 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 Mild lumbar spondylosis.
== END 2024-09-07 10:27 | disposition home or self-care (01) ==
LOC: ANHIMG 10:38
PROVIDERS: PCP Family Medicine
DX: M47.896 Other spondylosis, lumbar region (principal)
CPT/HCPCS: 72148

== ENCOUNTER 2025-05-12 16:12 | Emergency (ER) | payer OTHER, SELFPAY ==
--- NOTE | ~2025-05-12 | XR_ITS ---
Exam: X-ray chest 2 views. CLINICAL HISTORY: Choked on food. Left sided chest discomfort. COMPARISON: Chest x-ray 04/17/2023. Technique: Frontal and lateral views of the chest were obtained. Findings: Heart is not enlarged. No pneumothorax. No pleural effusion. No free air in the diaphragm. No focal p ulmonary consolidation. No metallic radiopaque foreign body identified. IMPRESSION: 1. No acute pulmonary process identified. If symptoms persist or worsen, consider a short-term follow-up study or additional imaging for furthe r assessment. Reviewed, dictated and finalized at location A. IMPRESSION: 1. No acute pulmonary process identified. If symptoms persist or worsen, consider a short-term follow-up study or additio nal imaging for further assessment.
[2025-05-12 16:17] VITALS: BP 124/87; PULSE 92; RESP 16; TEMP 37.2; O2SAT 98
--- NOTE | 2025-05-12 16:19 | ED.URI ---
HPI - URI/Sore Throat General Chief Complaint: Skin/Abscess/Foreign Body Stated Complaint: throat/chest irritation Time Seen by Provider: 05/12/25 16:15 Source: patient Mode of arrival: ambulatory Limitations: no limitations History of Present Illness HPI Narrative: David is a 40 year old male patient presenting to the clinic today with complaints of possible aspiration of food into his lungs. He reports he was choking on some food around noon today (cracker/cheese/salami) while he was talking to a co-worker and felt as though he sucked down the ?wrong hole?. Had some coughing and left sided chest discomfort after this. Did not vomit after the incident. Does report some left-sided chest discomfort that comes and goes but coughing has resolve. Feels as though something may be stuck in his lungs. No drooling, difficulty swallowing, or difficulty breathing. Related Data Allergies Allergy/AdvReac Type Severity Reaction Status Date / Time No Known Allergies Allergy Verified 05/12/25 16:21 Review of Systems Review of Systems: Pertinent positives per HPI. Patient denies any fever, chills, rash, headache, visual changes, dizziness, cough, runny nose, sore throat, shortness of breath, chest pain, palpitations, nausea, vomiting, diarrhea, constipation, abdominal pain, or any urinary issues. [facility] Past Medical History Medical History Hiatal hernia Cardiomyopathy Fatty liver BMI 26.0-26.9,adult Family History Family History Father Malignant neoplasm of prostate Mother H/O lymph node cancer Sibling No problems noted. 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 Smoking status: Never smoker Second hand tobacco smoke exposure: Yes Alcohol intake: former Alcohol use details: WEEKENDS Substance use: never Substance use type: does not use Do You Feel Safe in your Home?: Yes Lack of Transportation: No Lack of Food: Never True Current Housing: I Have Housing Concerned About Future Housing: No Difficulty Paying Gas/Electric Bills: No Difficulty Paying for Meds: No Currently Unemployed: No Education: Associate Degree Difficulty w/ Childcare or Family Care: No Living arrangements: with family 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 There is no relevant family history pertinent to the patient complaint. Exam Narrative: General: Well-developed, well nourished, in no apparent distress Head: Normocephalic, atraumatic Eyes: Pupils equally round and reactive to light bilaterally, EOM intact, sclera and conjunctive clear, no discharge, lids normal Ears: TMs intact and clear, ear canals clear, no drainage, grossly hearing normal. Nose: Nares patent, no discharge, no inflammation, no sinus tenderness. Mouth: Oropharynx without lesions or masses, good dentition, MMM. Neck: Supple, trachea midline, no enlargement of anterior or posterior cervical nodes, no thyroid masses or goiter palpable. Cardio: Regular rate and rhythm, s1 and s2 normal, no murmur appreciated. Resp: Clear to auscultation bilaterally anteriorly and posteriorly, no rhonchi, rales, wheezing or rubs Course Course Emergency Course: Portions of this record may have been created with voice recognition software. Level of Care: Express Care Visit Vital Signs Vital signs: Vital Signs Temperature 37.2 C 05/12/25 16:17 Pulse Rate 92 05/12/25 16:17 Respiratory Rate 16 05/12/25 16:17 Blood Pressure 124/87 05/12/25 16:17 Pulse Oximetry 98 05/12/25 16:17 Oxygen Delivery Room Air 05/12/25 16:17 Temperature 37.2 C 05/12/25 16:17 Pulse Rate 92 05/12/25 16:17 Respiratory Rate 16 05/12/25 16:17 Blood Pressure 124/87 05/12/25 16:17 Pulse Oximetry 98 05/12/25 16:17 Oxygen Delivery Room Air 05/12/25 16:17 Vital signs reviewed MDM - URI/Sore Throat MDM Narrative Medical decision making narrative: At the time of visit patient is resting comfortably on the exam table. Patient appears to be nontoxic. Complaints of possible aspiration of food into his lungs. He reports he was choking on some food around noon today (cracker/cheese/salami) while he was talking to a co-worker and felt as though he sucked down the ?wrong hole?. Had some coughing and left sided chest discomfort after this. Did not vomit after the incident. Does report some left-sided chest discomfort that comes and goes but coughing has resolve. Feels as though something may be stuck in his lungs. No drooling, difficulty swallowing, or difficulty breathing. On exam patient is not in any respiratory distress, he is able to project normally and speak in full sentences, has intermittent left-sided chest discomfort, no reproducible pain, denies any pain currently. No cough or fever. Lung sounds are clear and oxygenation is 98% on room air. Will obtain chest x-ray Diagnostics: Chest x-ray was performed and negative for any acute cardiopulmonary process. Plan: I suspect patient has had a choking episode and is concerned about aspiration. No sign of aspiration in the clinic today however this can take a couple days to show up on x-ray. Recommend follow-up with his PCP. Supportive measures were discussed with the patient and they voiced understanding discharge instructions and agrees to treatment plan. Return precautions reviewed Differential Diagnosis Differential diagnosis: Likely other (Aspiration pneumonia, foreign body in lung, GERD, acute cough) Discharge Plan Discharge Clinical Impression: Choking episode Patient Disposition: Home Condition: Stable Instructions: Antibiotic Form Additional Instructions: No retained food particle visualized in the oropharynx Chest x-rays negative for any acute cardiopulmonary process. Lung sounds are clear in the clinic today. Oxygenation is 98% on room air Increase fluids and stay well hydrated May take Tylenol/Motrin per bottle instructions as needed for pain or fever Follow-up with your PCP in 5-7 days if symptoms persist-may need repeat x-rays to rule out aspiration pneumonia Go to the emergency room if symptoms worsen fever not controlled by Tylenol Motrin, lethargy, difficulty breathing, shortness of breath, or chest pain Patient Language: Belarusian Prescriptions: No Action cholecalciferol (vitamin D3) 1,250 mcg (50,000 unit) capsule 1,250 mcg PO WEEKLY Qty: 8 0RF dicyclomine 20 mg tablet 20 mg PO TID Qty: 90 5RF pantoprazole 40 mg tablet,delayed release (DR/EC) 40 mg PO QAM 90 Days Qty: 90 3RF Follow-up/Referrals: Renato Cid MD [Primary Care Provider] - Quality NIHSS Nursing Documentation ED NIHSS nursing documentation: reviewed/agree
== END 2025-05-12 17:17 | disposition home or self-care (01) ==
PROVIDERS: Emergency Provider Nurse Practitioner Family; PCP Family Medicine
DX: T17.928A Food in respiratory tract, part unspecified causing other injury, initial encounter (principal); W44.F3XA Food entering into or through a natural orifice, initial encounter; I42.9 Cardiomyopathy, unspecified; K76.0 Fatty (change of) liver, not elsewhere classified
CPT/HCPCS: 71046; 99213; G0463

== ENCOUNTER 2025-06-09 16:11 | Outpatient (CLI) | payer OTHER, SELFPAY ==
--- NOTE | ~2025-06-09 | XR_ITS ---
EXAMINATION: XR chest 2V, 06/09/2025 16:20 CDT HISTORY: R07.2 - Precordial pain COMPARISON: No comparisons available. Technique: 2 views obtained. Findings: The lungs are clear, no effusion. No pneumothorax. Heart is normal size. Mediastinal and hilar contours are within normal limits. Bony thorax no acute abnormality. Impression: No acute cardiopulmonary abnormality. Reviewed, dictated and finalized at location A. Impression: No acute cardiopulmonary abnormality.
== END 2025-06-09 16:12 | disposition home or self-care (01) ==
PROVIDERS: PCP Family Medicine; Visit Provider Nurse Practitioner Family
DX: R07.2 Precordial pain (principal); R07.9 Chest pain, unspecified
CPT/HCPCS: 71046

== ENCOUNTER 2025-07-16 15:33 | Outpatient (CLI) | payer OTHER, SELFPAY ==
[2025-07-16 16:11] LABS: Alanine Aminotransferase 33 U/L (6-50); Albumin Level 4.6 g/dL (3.5-5.1); Alkaline Phosphatase 77 U/L (38-126); Anion Gap 9 mmol/L (4-12); Aspartate Amino Transferase 43 U/L (17-59); Bilirubin,Total 0.8 mg/dL (0.2-1.3); Blood Urea Nitrogen 19 mg/dL (9-20); Calcium 9.1 mg/dL (8.4-10.2); Carbon Dioxide 27 mmol/L (22-30); Chloride 102 mmol/L (98-107); Cholesterol 172 mg/dL (0-200); Estimated Glomerular Filt Rate > 60; Glucose 91 mg/dL (65-110); HDL Direct 47 mg/dL; Potassium 4.0 mmol/L (3.4-5.0); Sodium 138 mmol/L (137-145); Total Protein 8.0 g/dL (6.3-8.2); Triglycerides 107 mg/dL (<150)
--- OUTSIDE RECORDS SUMMARY | 2025-07-16 17:31 | XMS_ITS | Clinical Summary ---
Author Organization [facility] Address [address] 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 This disclosure is being madepursuant to the Care Everywhere program and may not contain all information available regarding this patient. Last updated 18.[facility] Allergies No known active allergies Medications * Be aware that medications may not be up to date on this document. Alwaysverify current medications with the patient. 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 Gender Identity Not on file Sexual Orientation Not on file Last Filed Vital Signs Vital Sign Reading Time Taken Comments Blood Pressure 123/88 04/01/2025 3:18 PM CDT Pulse 75 04/01/2025 3:18 PM CDT Temperature 36.7 C (98 F) 04/01/2025 3:18 PM CDT Respiratory Rate 20 04/01/2025 3:18 PM CDT Oxygen Saturation 96% 03/18/2025 3:15 PM CDT Inhaled Oxygen Concentration - - Weight 95.3 kg (210 lb) 04/01/2025 3:18 PM CDT Height 185.4 cm (6' 1) 04/01/2025 3:18 PM CDT Body Mass Index 27.71 04/01/2025 3:18 PM CDT Plan of Treatment Health Maintenance Due Date Last Done Comments LIPID TESTING 1985 HIV SCREENING 1998 HEPATITIS C SCREENING 04/16/2001 DTAP/TDAP/TD VACCINES (1 - Tdap) 2002 HEPATITIS B VACCINE (1 of 3 - 19+ 3-dose series) 2002 HPV VACCINE (1 - 3-dose SCDM series) 2010 SCREENING FOR DIABETES 06/19/2023 DEPRESSION SCREENING 10/02/2024 COVID-19 VACCINE (1 - 2023-2 5 season) 2025 INFLUENZA VACCINE (#1) 2025 ZOSTER VACCINE (1 of 2) 2033 HIB VACCINE Aged Out No longer eligi ble based on patient's age to complete this topic MENINGOCOCCAL (Group B) VACC INE SHARED DECISION-MAKING Aged Out No longer eligibl e based on patient's age to complete this topic MENINGOCOCCAL GROUPS A/C/Y/W VACCINE Aged Out No longer eligible b ased on patient's age to complete this topic PNEUMOCOCCAL VACCINE Aged Out No long er eligible based on patient's age to complete this topic Insurance [address] [place] [address] [facility] [employer] * Guarantor: DEEPIKA SILVA Account Type Relation to Patient Date of Phone Billing Address Personal/Family 1985 [address] [place] [address] Care Teams 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
--- OUTSIDE RECORDS SUMMARY | 2025-07-16 17:31 | XMS_ITS | Clinical Summary ---
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 Gender Identity Not on file Sexual Orientation Not on file Plan of Treatment Health Maintenance Due Date Last Done Comments Hepatitis C Virus (HCV) Screening 1985 TdaP Immunization 1985 Hepatitis B Immunization (1 of 3 - 19+ 3-dose series) 2002 Human Papillomavirus (HPV) Immunization (1 - 3-dose SCDM series) 2010 Influenza Immunization (#1) 2025 SARS-COV-2 Immunization ( season) 2025 Respiratory Syncytial Virus (RSV) Immunization (Adult) (1 - 1-dose 75+ series) 2058 Meningococcal Immunization (ACWY) Aged Out No longer eligible based on patient's age to complete this topic Pneumococcal Immunization Combined Aged Out No longer eligible based on patient's age to complete this topic Rotavirus Immunization Aged Out No lo nger eligible based on patient's age to complete this topic
== END 2025-07-16 15:34 | disposition home or self-care (01) ==
LOC: ANHLAB 15:34
PROVIDERS: PCP Family Medicine; Visit Provider Internal Medicine Cardiovascular Disease
DX: Z13.220 Encounter for screening for lipoid disorders (principal)
CPT/HCPCS: 36415; 80053; 80061

== ENCOUNTER 2025-09-15 17:35 | Emergency (ER) | payer OTHER, SELFPAY ==
[2025-09-15 17:42] VITALS: BP 145/87; PULSE 72; RESP 18; TEMP 36.3; O2SAT 99
--- NOTE | 2025-09-15 18:03 | ED.URI ---
HPI - URI/Sore Throat General Chief Complaint: Upper Respiratory Infection Stated Complaint: Digestive Issues/Sore Throat Time Seen by Provider: 09/15/25 17:53 Source: patient and RN notes reviewed Mode of arrival: ambulatory Limitations: no limitations History of Present Illness HPI Narrative: 40-year-old male patient with history of hiatal hernia, GERD, complains of a 2 day history of nasal congestion and esophageal discomfort. Also states he is feeling a globus sensation when swallowing food. States fluids past with no problem. He is due to see his GI in 3 days. Takes pantoprazole 40 mg daily. Related Data Allergies Allergy/AdvReac Type Severity Reaction Status Date / Time No Known Allergies Allergy Verified 09/15/25 17:51 PMFSH Past Medical History Medical History Mastoiditis Hiatal hernia Cardiomyopathy Fatty liver BMI 26.0-26.9,adult Family History Family History Father Malignant neoplasm of prostate Mother H/O lymph node cancer Sibling No problems noted. 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 Smoking status: Never smoker Second hand tobacco smoke exposure: Yes Alcohol intake: former Alcohol use details: WEEKENDS Substance use: never Substance use type: does not use Lack of Transportation: No Lack of Food: Never True Current Housing: I Have Housing Concerned About Future Housing: No Difficulty Paying Gas/Electric Bills: No Difficulty Paying for Meds: No Currently Unemployed: No Education: Associate Degree Difficulty w/ Childcare or Family Care: No Living arrangements: with family 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 Please see nursing chart for further information. There is no relevant family history pertinent to the presenting complaint Exam Narrative: GENERAL: Well-appearing, well-nourished, and in no acute distress. HEAD: Normocephalic, atraumatic. EYES: EOMI. No redness or drainage. Conjunctivae normal. ENT: Mucous membranes pink and moist. Nares clear. No rhinorrhea. TMs normal bilaterally. Throat normal. Uvula midline. NECK: Normal AROM. Supple. No lymphadenopathy. CHEST: No respiratory distress. Clear to auscultation. HEART: Regular rate and rhythm. No murmur appreciated. EXTREMITIES: Normal range of motion. No edema. SKIN: Warm, dry, no rash. Capillary refill normal. Normal skin turgor. NEURO: No focal deficits. Alert and oriented x3. Gait steady. PSYCH: Normal affect. No signs of depression or anxiety. Course Course Level of Care: Express Care Visit Vital Signs Vital signs: Vital Signs Temperature 97.3 F L 09/15/25 17:42 Pulse Rate 72 09/15/25 17:42 Respiratory Rate 18 09/15/25 17:42 Blood Pressure 145/87 H 09/15/25 17:42 Pulse Oximetry 99 09/15/25 17:42 Oxygen Delivery Room Air 09/15/25 17:42 Temperature 97.3 F L 09/15/25 17:42 Pulse Rate 72 09/15/25 17:42 Respiratory Rate 18 09/15/25 17:42 Blood Pressure 145/87 H 09/15/25 17:42 Pulse Oximetry 99 09/15/25 17:42 Oxygen Delivery Room Air 09/15/25 17:42 Reviewed [facility] Narrative Medical decision making narrative: 40-year-old male patient with history of hiatal hernia, GERD, complains of a 2 day history of nasal congestion and esophageal discomfort. Also states he is feeling a globus sensation when swallowing food. States fluids past with no problem. He is due to see his GI in 3 days. Takes pantoprazole 40 mg daily. Normal physical exam. Rapid strep negative. Culture pending. Recommend follow up with GI as scheduled. Recommendations given to help prevent retained food in the esophagus. Patient agrees with plan. Vital signs stable. Anticipatory guidance given. ED precautions given. Differential Diagnosis Differential Diagnosis: Strep throat, pharyngitis, hiatal hernia, esophageal stricture, esophageal dysmotility, GERD Lab Data [facility] Lab Attestation statement: I personally reviewed the patient's lab results. Lab results narrative: Rapid strep negative Labs: Lab Results 09/15/25 Range/Units 18:11 POC Grp A Strep Screen Negative (Negative) Critical Care Time Critical Care Time Critical Care Time: No Discharge Plan Discharge Clinical Impression: Dysphagia Qualifiers: Dysphagia type: unspecified Qualified Code(s): R13.10 - Dysphagia, unspecified Patient Disposition: Home Condition: Stable Instructions: Dysphagia (ED) Additional Instructions: Your rapid strep test is negative. Please follow-up with your soda flaker as scheduled this week. In the meantime, please take small bites and drink plenty of fluids to help food pass easily. Sit upright for 2-3 hours after eating before going to bed. Take your pantoprazole as prescribed. As discussed, if you feel food getting stuck in your esophagus that will not pass, please go to the ER for further evaluation and treatment. Patient Language: Divehi Prescriptions: No Action pantoprazole 40 mg tablet,delayed release (DR/EC) 40 mg PO QAM 90 Days Qty: 90 3RF Follow-up/Referrals: Renato Cid MD [Primary Care Provider, [facility]] Time of Disposition: 18:24
[2025-09-15 19:01] LABS: EDSTREPNEGPOS1 Negative (Negative)
== END 2025-09-15 18:30 | disposition home or self-care (01) ==
PROVIDERS: Emergency Provider Nurse Practitioner; PCP Family Medicine
DX: R13.10 Dysphagia, unspecified (principal); I42.9 Cardiomyopathy, unspecified; K76.0 Fatty (change of) liver, not elsewhere classified; K21.9 Gastro-esophageal reflux disease without esophagitis
CPT/HCPCS: 87081; 87880; 99213; G0463